=== PATIENT | female | born 1935 | race Caucasian/White ===

== ENCOUNTER 2018-12-22 20:04 | Emergency (ER) | payer MEDICARE, MEDICAID ==
[~2018-12-22] VITALS: Ht 160 cm; Wt 72.6 kg
[2018-12-22] MEDS ORDERED: LORA10TA7 PO (20:27)
[2018-12-22] MEDS ORDERED: ESCI10TA PO (20:27)
[2018-12-22] MEDS ORDERED: OLME1TAB34 PO (20:27)
[2018-12-22] MEDS ORDERED: SIMV-46 PO (20:27)
[2018-12-22] MEDS ORDERED: LEVO50TA8 PO (20:27)
[2018-12-22] MEDS ORDERED: METF-440 PO (20:27)
[2018-12-22] MEDS ORDERED: FINA5TAB11 PO (20:27)
[2018-12-22] MEDS ORDERED: ASPI-605 PO (20:27)
[2018-12-22 20:30] LABS: *BILIRUBIN,URIN NEGATIVE (NEGATIVE); *CLARITY,URINE CLEAR (CLEAR); *COLOR,URINE LIGHT YELLOW (YELLOW); *KETONES,URINE NEGATIVE (NEGATIVE); *UROBILINOGEN,URINE 0.2 E.U./dl (NORMAL); LEUKOCYTE ESTERASE ,URINE TRACE (NEGATIVE); NITRITE, URINE NEGATIVE (NEGATIVE); PH,URINE 5.5 (5.0-8.0); UGLUCOSE NEGATIVE (NEGATIVE)
[2018-12-22 20:35] LABS: *BLOOD, URINE TRACE (NEGATIVE)
[2018-12-22 20:36] LABS: RBC,URINE 0-3 /HPF (0-3)
[2018-12-22 20:37] LABS: SQUAMOUS EPITHELIAL CELL,UR FEW /HPF (NONE SEEN)
[2018-12-22] MEDS ORDERED: CEphaleXIN 500 MG CAPSULE PO ONE (20:45)
[2018-12-22] MEDS ORDERED: CEphaleXIN 500 MG CAPSULE ONE (20:48)
--- NOTE | 2018-12-22 20:53 | NUR ---
Patient discharged to home in stable conditon. Written and verbal after care instructions given. Patient verbalizes understanding of instructions. Pt ambulated out of ER with steady gait, no acute signs of distress, VSS, all belongings taken, to be driven home via private vehicle by son.
[2018-12-22 20:54] VITALS: BP 146/67
== END 2018-12-22 20:55 | disposition home or self-care (01) ==
LOC: ER 20:04
DX: N39.0 Urinary tract infection, site not specified (principal); I10 Essential (primary) hypertension; E78.5 Hyperlipidemia, unspecified; E11.9 Type 2 diabetes mellitus without complications; E03.9 Hypothyroidism, unspecified; Z79.82 Long term (current) use of aspirin; Z79.899 Other long term (current) drug therapy
CPT/HCPCS: 87086; A4663

== ENCOUNTER 2019-06-07 17:55 | Emergency (ER) | payer MEDICARE, OTHER ==
[~2019-06-07] VITALS: Ht 160 cm; Wt 64.4 kg
[~2019-06-07 17:55] MED LIST: ASPI-605 PO; ESCI10TA PO; FINA5TAB11 PO; LEVO50TA8 PO; LORA10TA7 PO; METF-440 PO; OLME1TAB34 PO; SIMV-46 PO
[2019-06-07] MEDS ORDERED: TDAP DIPH,PERTUSS,TET VAC/PF 0.5 ML DISP.SYRIN IM ONE ×2 (19:00→19:06)
--- NOTE | 2019-06-07 19:40 | NUR ---
Patient discharged to home in stable condition. Written and verbal after care instructions given to patient's son due to language barrier. Patient verbalizes understanding of instructions. Stressed follow up or return to ER for worsening s/s. patient out of er with steady gait. vital signs stable. no signs of distress. all belongings taken. to be driven home by son in private vehicle.
[2019-06-07 20:52] VITALS: BP 140/78
== END 2019-06-07 19:40 | disposition home or self-care (01) ==
LOC: ER 18:01
DX: S61.210A Laceration without foreign body of right index finger without damage to nail, initial encounter (principal); W26.0XXA Contact with knife, initial encounter; Y92.019 Unspecified place in single-family (private) house as the place of occurrence of the external cause; E78.5 Hyperlipidemia, unspecified; E03.9 Hypothyroidism, unspecified; I10 Essential (primary) hypertension; Z79.82 Long term (current) use of aspirin; E11.9 Type 2 diabetes mellitus without complications; Z79.84 Long term (current) use of oral hypoglycemic drugs
CPT/HCPCS: 90715; A4217; A4663

== ENCOUNTER 2021-10-31 12:03 | Emergency (ER) | payer MEDICARE, OTHER ==
[~2021-10-31] VITALS: Ht 154.9 cm; Wt 63.5 kg
[2021-10-31 13:49] LABS: HEMATOCRIT 35.7 % (31.2-41.9); MEAN CORPUSCULAR VOLUME 96.2 fL (75.5-95.3); PLATELET COUNT (AUTO) 216 K/uL (179-408)
--- NOTE | 2021-10-31 13:52 | NUR ---
Solicitor Patent assumes care: portable x-rays in progress, patient is alert, awake, oriented x4, moving all 4 extremities, respiration:easy, calm and cooperative, family [email or web address]. Blood was drawn by lab staff Thelma earlier.
[2021-10-31] MEDS ORDERED: LIDOCAINE 5% PATCH TD ONE ×2 (14:00→14:06)
[2021-10-31 14:01] LABS: BILIRUBIN,TOTAL 0.8 mg/dL (0.2-1.0); CREATININE 1.3 mg/dL (0.6-1.3); POTASSIUM 5.4 mmol/L (3.5-5.1); TOTAL PROTEIN, SERUM 7.6 g/dL (6.4-8.2)
[2021-10-31] MEDS ORDERED: KETOROLAC TROMETHAMINE 15 MG INJ IVP ONE (14:45)
[2021-10-31] MEDS ORDERED: KETOROLAC TROMETHAMINE 15 MG INJ ONE (14:59)
--- NOTE | 2021-10-31 16:35 | NUR ---
IV removed. Catheter intact and site benign. Pressure and 4x4 gauze applied to site. No bleeding noted. Patient discharged to home in stable condition with slow steady gait. Written and verbal after care instructions given to patient and adult son. Patient and family verbalized understanding and compliance of instructions. Stressed follow up with primary doctor or return to ER for worsening s/s.
== END 2021-10-31 16:36 | disposition home or self-care (01) ==
LOC: ER 12:08
DX: R07.89 Other chest pain (principal); I10 Essential (primary) hypertension; E78.5 Hyperlipidemia, unspecified; E11.9 Type 2 diabetes mellitus without complications; E87.5 Hyperkalemia; M50.30 Other cervical disc degeneration, unspecified cervical region; M19.011 Primary osteoarthritis, right shoulder; Z91.81 History of falling; R91.1 Solitary pulmonary nodule; I77.810 Thoracic aortic ectasia
CPT/HCPCS: 99285; 70450; 96374; 80053; 85025; 84484; 36415; 93005; 71111; 73030; 71250; 72125; J1885; A4663